=== PATIENT | male | born 1995 | race Caucasian/White ===

== ENCOUNTER 2018-07-25 12:09 | Emergency (ER) | payer OTHER ==
[~2018-07-25] VITALS: Ht 190.5 cm; Wt 111.1 kg
[2018-07-25] MEDS ORDERED: ARIP10 PO (12:14)
[2018-07-25] MEDS ORDERED: CYCL10 PO (12:56)
[2018-07-25] MEDS ORDERED: IBUP800 PO (12:56)
[2018-07-26] MEDS ORDERED: OXYC5 PO (00:10)
== END 2018-07-25 13:00 | disposition home or self-care (01) ==
LOC: ER 12:09
DX: M43.6 Torticollis (principal); F17.200 Nicotine dependence, unspecified, uncomplicated; Z79.899 Other long term (current) drug therapy
CPT/HCPCS: 99283

== ENCOUNTER 2019-02-03 16:52 | Emergency (ER) | payer MEDICAID ==
[~2019-02-03] VITALS: Ht 190.5 cm; Wt 104.3 kg
[~2019-02-03 16:52] MED LIST: ARIP10 PO; CYCL10 PO; IBUP800 PO; OXYC5 PO
[2019-02-03] MEDS ORDERED: PENVK500 PO (17:53)
== END 2019-02-03 17:58 | disposition home or self-care (01) ==
LOC: ER 16:52
DX: K04.7 Periapical abscess without sinus (principal); Z79.899 Other long term (current) drug therapy; F17.290 Nicotine dependence, other tobacco product, uncomplicated
CPT/HCPCS: 99282

== ENCOUNTER → 2019-12-07 | Outpatient (CLI) | payer OTHER ==
[~2019-12-07] MED LIST changes: +PENVK500 PO
[2019-12-07 19:10] LABS: U Cannabinoids Screen DETECTED
[2019-12-07 19:11] LABS: U Amphetamine Screen Not Detected; U Barbituate Screen Not Detected; U Benzodiazapine Screen Not Detected; U Buprenorphine Screen Not Detected; U Cocaine Screen Not Detected; U Methadone Screen Not Detected; U Methamphetamine Screen Not Detected; U Opiates Screen Not Detected; U Oxycodone Screen Not Detected; U Propoxyphene Screen Not Detected
== END | disposition home or self-care (01) ==
LOC: LAB SHORT 11:40 → LAB 11:40
PROVIDERS: Registered Nurse Psychiatric/Mental Health
DX: Z51.81 Encounter for therapeutic drug level monitoring (principal); Z79.899 Other long term (current) drug therapy

== ENCOUNTER → 2019-12-09 | Outpatient (CLI) | payer OTHER | END | disposition home or self-care (01) | LOC: LAB SHORT 10:53 → LAB EV 10:53 | DX: R07.0 Pain in throat (principal) | CPT/HCPCS: 87081 ==

== ENCOUNTER 2020-11-10 12:09 | Day surgery (SDC) | payer OTHER ==
[~2020-11-10] VITALS: Ht 190.5 cm; Wt 113.4 kg
[2020-11-10 13:04] LABS: BASOPHILS ABSOLUTE AUTO 0.05 K/mm3 (0.00-0.23); BASOPHILS PERCENT AUTO 1 % (0-2); EOSINOPHILS ABSOLUTE AUTO 0.07 K/mm3 (0.00-0.68); EOSINOPHILS PERCENT AUTO 1 % (0-6); Hematocrit 43.4 % (37.0-53.0); Hemoglobin 14.4 g/dL (13.5-17.5); IMMATURE GRAN ABSOLUTE AUTO 0.06 K/mm3 (0.00-0.10); IMMATURE GRAN PERCENT AUTO 1 % (0-1); LYMPHOCYTES PERCENT AUTO 28 % (21-46); MONOCYTES ABSOLUTE AUTO 0.58 K/mm3 (0.16-1.47); MONOCYTES PERCENT AUTO 6 % (4-13); Mean Corpuscular HGB 28.2 pg (26.0-34.0); Mean Corpuscular HGB Conc 33.2 g/dL (31.5-36.5); Mean Corpuscular Volume 85 fL (80-100); Mean Platelet Volume 9.8 fL (9.1-12.4); NEUTROPHILS PERCENT AUTO 64 % (41-73); Platelet Count 319 K/mm3 (150-400); RDW Coefficient Variation 13.3 % (11.7-14.2); RDW Standard Deviation 41.6 fL (35.1-46.3); White Blood Cell Count 9.56 K/mm3 (4.00-11.30)
[2020-11-10 13:24] LABS: Alanine Aminotransfer (ALT/SGP 44 U/L (12-78); Albumin, Blood 3.6 g/dL (3.4-5.0); Alk Phos 60 U/L (50-136); Anion Gap 6 mmol/L (6-16); Aspartate Aminotrans (AST/SGOT 22 U/L (12-37); Bilirubin, Total 0.4 mg/dL (0.1-1.0); Blood Urea Nitrogen 12 mg/dL (8-24); Bun/Creatinine Ratio 16.6 (12.0-20.0); CO2, Blood 23 mmol/L (21-32); Calcium, Blood 8.9 mg/dL (8.5-10.1); Chloride, Blood 110 mmol/L (98-108); Creatinine, Blood 0.72 mg/dL (0.60-1.20); Globulin, Blood 3.5 g/dL (2.2-4.0); Glomerular Filtration Rate >60 (60-); Glucose, Blood 144 mg/dL (70-99); Potassium, Blood 3.8 mmol/L (3.5-5.5); Sodium, Blood 139 mmol/L (136-145); Total Protein, Blood 7.1 g/dL (6.4-8.2)
[2020-11-10 13:46] LABS: Influenza A, PCR NEGATIVE (NEGATIVE); Influenza B, PCR NEGATIVE (NEGATIVE); Resp Syncytial Virus, PCR NEGATIVE (NEGATIVE); SARS-Cov-2 (COVID-19) PCR, MMC NEGATIVE (NEGATIVE)
[2020-11-11 04:29] LABS: BASOPHILS ABSOLUTE AUTO 0.02 K/mm3 (0.00-0.23); BASOPHILS PERCENT AUTO 0 % (0-2); EOSINOPHILS PERCENT AUTO 0 % (0-6); Hematocrit 43.6 % (37.0-53.0); Hemoglobin 14.2 g/dL (13.5-17.5); IMMATURE GRAN ABSOLUTE AUTO 0.05 K/mm3 (0.00-0.10); IMMATURE GRAN PERCENT AUTO 0 % (0-1); LYMPHOCYTES ABSOLUTE AUTO 1.49 K/mm3 (0.84-5.20); LYMPHOCYTES PERCENT AUTO 10 % (21-46); MONOCYTES ABSOLUTE AUTO 0.95 K/mm3 (0.16-1.47); MONOCYTES PERCENT AUTO 6 % (4-13); Mean Corpuscular HGB 28.1 pg (26.0-34.0); Mean Corpuscular HGB Conc 32.6 g/dL (31.5-36.5); Mean Corpuscular Volume 86 fL (80-100); Mean Platelet Volume 9.6 fL (9.1-12.4); NEUTROPHILS ABSOLUTE AUTO 13.01 K/mm3 (1.96-9.15); NEUTROPHILS PERCENT AUTO 84 % (41-73); Platelet Count 334 K/mm3 (150-400); RDW Coefficient Variation 13.5 % (11.7-14.2); RDW Standard Deviation 42.5 fL (35.1-46.3); Red Blood Cell Count 5.05 M/mm3 (4.30-5.90); White Blood Cell Count 15.52 K/mm3 (4.00-11.30)
--- NOTE | 2020-11-11 05:50 | NUR ---
SHIFT SUMMARY: PT SENT TO FLOOR FROM PACU AT APPROX 2039 LAST NIGHT ACCOMPONIED BY PARENTS. PT NOW POD#1 FOR AN ORIF TO RT ARM. KAROLINE WRAP AND SPLINT IN PLACE WITH ICE PACKS. EXTREMITY ELEVATED THROUGHOUT NIGHT. PT UNABLE TO FEEL RT ARM R/T BLOCK GIVEN IN OR. UNABLE TO WIGGLE FINGERS. CAP REFILL WNL. PT ALSO HAS A FX TO L ELBOW THAT IS CURRENTLY NON SURGICAL. PT NWB TO BUE'S. VOIDING IN BATHROOM; REQUIRING ONE ASSIST. PT HAS DENIED PAIN THROUGHOUT NIGHT.
[2020-11-11] MEDS ORDERED: Percocet 5-3251 EACH PO (11:38)
--- NOTE | 2020-11-11 12:18 | NUR ---
DISCHARGE PT AND HIS MOTHER WERE PROVIDED WITH WRITTEN AND VERBAL DISCHARGE INSTRUCTIONS. THEY REPORTED UNDERSTANDING INSTRUCTIONS. PT ASSSITED TO USE SLINGS FOR HIS ARMS. PRESCRIPTION PROVIDED FOR HUMAN RESOURCES INTERN.
== END 2020-11-11 12:08 | disposition home or self-care (01) ==
LOC: ER 12:09 → SURS 12:10 → ORSCMMR 16:02 → SURS 11-11 12:08
PROVIDERS: Orthopaedic Surgery; Physician Assistant
PROC: 0PSH04Z Reposition Right Radius with Internal Fixation Device, Open Approach (ICD-10-PCS; principal; 2020-11-10 16:25)
PROC: 0PSK04Z Reposition Right Ulna with Internal Fixation Device, Open Approach (ICD-10-PCS; principal; 2020-11-10 16:25)
DX: S52.291B Other fracture of shaft of right ulna, initial encounter for open fracture type I or II (principal); S52.391B Other fracture of shaft of radius, right arm, initial encounter for open fracture type I or II; V19.3XXA Pedal cyclist (driver) (passenger) injured in unspecified nontraffic accident, initial encounter
CPT/HCPCS: 0241U; 36415; 73080; 73090; 80053; 85025; 86850; 86900; 86901; 90471; 90714; 93005; 93010; 96365-59; 96375-59; 96376-59; 99284-25; A9270; C1713; J0690; J1100; J1170; J1885; J2250; J2405; J2704; J2710; J3010; J7030; J7120

== ENCOUNTER 2024-07-24 06:16 | Emergency (ER) | payer OTHER ==
[~2024-07-24] VITALS: Ht 190.5 cm; Wt 117.9 kg
[~2024-07-24 06:16] MED LIST changes: +Percocet 5-3251 EACH PO
[2024-07-24 06:23] VITALS: BP 149/94
[2024-07-24] MEDS ORDERED: HYDHCL25 PO (06:26)
[2024-07-24] MEDS ORDERED: AMOCLA875 PO (06:45)
[2024-07-24] MEDS ORDERED: Amoxicillin/Clavulanate K 875 MG Tab PO ONE (06:45)
== END 2024-07-24 06:51 | disposition home or self-care (01) ==
LOC: ER 06:16
DX: K04.7 Periapical abscess without sinus (principal); K02.9 Dental caries, unspecified
CPT/HCPCS: 99282; A9270

== ENCOUNTER 2024-11-10 22:13 | Emergency (ER) | payer OTHER ==
[~2024-11-10] VITALS: Ht 188 cm; Wt 108.9 kg
[~2024-11-10 22:13] MED LIST changes: +AMOCLA875 PO; +HYDHCL25 PO
[2024-11-10 22:19] VITALS: BP 150/103
[2024-11-10] MEDS ORDERED: Ondansetron HCl 2 MG / ML 2ML Vial IV ONE (22:35)
[2024-11-10] MEDS ORDERED: Ondansetron 4 MG SoluTab SL ONE (22:40)
[2024-11-10] MEDS ORDERED: HYDROcodone 5-APAP 325 TAB PO ONE (22:40)
== END 2024-11-10 23:25 | disposition home or self-care (01) ==
LOC: ER 22:13
DX: S61.412A Laceration without foreign body of left hand, initial encounter (principal); W26.9XXA Contact with unspecified sharp object(s), initial encounter
CPT/HCPCS: 12004; 99282-25; A9270; J2405

== ENCOUNTER 2024-11-19 06:10 | Day surgery (SDC) | payer OTHER ==
[~2024-11-19] VITALS: Ht 193 cm; Wt 118.1 kg
[~2024-11-19 06:10] MED LIST changes: +Lactated Ringer's 1,000 ML IV ONE
[2024-11-19] MEDS ORDERED: propofoL 50 ML IV ONE (06:34)
[2024-11-19] MEDS ORDERED: Dexmedetomidine HCL 200 MCG / 2 ML ONE (06:34)
[2024-11-19] MEDS ORDERED: Lactated Ringer's 1,000 ML IV ONE (06:42)
[2024-11-19] MEDS ORDERED: Lidocaine 1%-Epineph 1:100000 20 ML MDV ONE (06:45)
[2024-11-19] MEDS ORDERED: DiphenhydrAMINE HCl 50 MG/ML 1ML Vial ONE (06:45)
[2024-11-19] MEDS ORDERED: Ondansetron HCl 2 MG / ML 2ML Vial ONE (06:45)
[2024-11-19] MEDS ORDERED: Dexamethasone Sod Phos 10 MG/ML 1ML VIAL ONE (06:45)
[2024-11-19] MEDS ORDERED: CeFAZolin Sodium 2,000 MG VIAL ONE (07:05)
[2024-11-19] MEDS ORDERED: Acetaminophen 500 MG Tab ONE (07:06)
[2024-11-19] MEDS ORDERED: Lidocaine HCl 2% 10 ML SDA ONE (07:07)
[2024-11-19] MEDS ORDERED: HYDROmorphone HCl/Pf 1MG SYR ONE (07:23)
[2024-11-19] MEDS ORDERED: Glycopyrrolate 0.2 MG/ML 5ML VIAL ONE (07:32)
[2024-11-19] MEDS ORDERED: FentaNYL Citrate 50 MCG/ML 2 ML Injection ONE ×2 (07:35→08:58)
[2024-11-19] MEDS ORDERED: propofoL 20 ML IV ONE (07:52)
--- NOTE | 2024-11-19 09:14 | NUR ---
11/19/24 0914 Sylvester Man, 0910 FENTANYL 25MCG IV ADMINISTERED FOR PAIN 03/29.
[2024-11-19 09:16] VITALS: BP 131/76
== END 2024-11-19 09:20 | disposition home or self-care (01) ==
LOC: ORSCSDS 06:10
PROVIDERS: Orthopaedic Surgery
PROC: 0KBD0ZZ Excision of Left Hand Muscle, Open Approach (ICD-10-PCS; principal; 2024-11-19 07:30)
PROC: 01N50ZZ Release Median Nerve, Open Approach (ICD-10-PCS; principal; 2024-11-19 07:30)
DX: S61.412A Laceration without foreign body of left hand, initial encounter (principal); M79.642 Pain in left hand; E78.5 Hyperlipidemia, unspecified; Z87.891 Personal history of nicotine dependence
CPT/HCPCS: A9270; J0690; J1100; J1171; J1200; J2003; J2405; J2704; J3010; J7120